=== PATIENT | female | born 1995 | race Caucasian/White ===

== ENCOUNTER → 2016-08-20 | Emergency (ER) | payer OTHER ==
[~2016-08-20] VITALS: Ht 152.4 cm; Wt 61.7 kg
[2016-08-20 19:22] VITALS: BP 143/65
== END | disposition home or self-care (01) ==
LOC: M ED 20:43
DX: F43.0 Acute stress reaction (principal); Z60.9 Problem related to social environment, unspecified; R41.9 Unspecified symptoms and signs involving cognitive functions and awareness; F41.9 Anxiety disorder, unspecified; F32.9 Major depressive disorder, single episode, unspecified; F90.9 Attention-deficit hyperactivity disorder, unspecified type; F42.9 Obsessive-compulsive disorder, unspecified; F84.5 Asperger's syndrome

== ENCOUNTER 2024-04-01 12:51 | Emergency (ER) | payer MEDICARE, MEDICAID ==
[~2024-04-01] VITALS: Ht 152.4 cm; Wt 90.0 kg
[2024-04-01 13:05] VITALS: TEMP 97.6
[2024-04-01] MEDS ORDERED: VITA100065 PO (13:13)
[2024-04-01 13:35] LABS: HEMATOCRIT 39.2 % (36.0-47.0); HEMOGLOBIN 12.6 g/dl (12.0-15.5); MEAN CORPUSCULAR HGB CONC 32.1 g/dl (32.0-36.5); MEAN CORPUSCULAR VOLUME 90.1 fl (80.0-96.0); PLATELET COUNT, AUTOMATED 254 10^3/uL (150-450); RED BLOOD COUNT 4.35 10^6/uL (4.00-5.40); WHITE BLOOD COUNT 6.6 10^3/uL (4.0-10.0)
[2024-04-01 14:08] LABS: AMPHETAMINES LEVEL URINE NEGATIVE (NEGATIVE); BARBITURATES URINE NEGATIVE (NEGATIVE)
[2024-04-01 14:09] LABS: BENZODIAZEPINES URINE NEGATIVE (NEGATIVE); CANNABINOIDS URINE NEGATIVE (NEGATIVE); COCAINE METABOLITE URINE NEGATIVE (NEGATIVE); ETHYL ALCOHOL (ETHANOL) < 0.003 % (0.000-0.010); METHADONE URINE NEGATIVE (NEGATIVE); OPIATES URINE NEGATIVE (NEGATIVE); PHENCYCLIDINE URINE NEGATIVE (NEGATIVE)
[2024-04-01 14:10] LABS: SALICYLATE LEVEL < 3.0 MG/DL (<30)
[2024-04-01 14:11] LABS: ALBUMIN 3.7 G/DL (3.2-5.2); ALKALINE PHOSPHATASE 73 U/L (35-104); ALT/SGPT 19 U/L (7.0-40); AST/SGOT 25 U/L (<34); BILIRUBIN,DIRECT 0.1 MG/DL (<0.4); BILIRUBIN,TOTAL 0.4 MG/DL (0.3-1.2); BLOOD UREA NITROGEN 7 MG/DL (9-23); CALCIUM LEVEL 9.2 MG/DL (8.5-10.1); CARBON DIOXIDE LEVEL 26 MMOL/L (20-31); CHLORIDE LEVEL 109 MMOL/L (98-107); CREATININE FOR GFR 0.56 MG/DL (0.55-1.30); GLOMERULAR FILTRATION RATE > 60.0 (>60); GLUCOSE, FASTING 94 MG/DL (60-100); POTASSIUM SERUM 3.9 MMOL/L (3.5-5.1); SODIUM LEVEL 141 MMOL/L (136-145); TOTAL PROTEIN 7.3 G/DL (5.7-8.2)
[2024-04-01 14:18] LABS: THYROID STIMULATING HORMONE 1.777 uIU/ML (0.55-4.78)
[2024-04-01 14:35] LABS: HCG, SERUM QUALITATIVE NEGATIVE (NEGATIVE)
[2024-04-01 16:24] VITALS: BP 154/65; O2SAT 98
== END 2024-04-01 16:24 | disposition home or self-care (01) ==
LOC: M ED 12:51
DX: Z04.6 Encounter for general psychiatric examination, requested by authority (principal); F32.A Depression, unspecified; F41.9 Anxiety disorder, unspecified